=== PATIENT | male | born 1980 | race Caucasian/White ===

== ENCOUNTER 2022-06-09 01:30 | Inpatient (IN) | payer MEDICAID ==
[~2022-06-09] VITALS: Ht 172.7 cm; Wt 60.3 kg
[2022-06-09 01:30] VITALS: BP 91/62
--- NOTE | 2022-06-09 01:36 | NUR ---
PT [facility] ER BED 07
--- NOTE | 2022-06-09 01:41 | NUR ---
Patient being evaluated by physician at bedside.
[2022-06-09] MEDS ORDERED: NACL 0.9% 1,000 ML IV ONE (01:50)
--- NOTE | 2022-06-09 02:00 | NUR ---
42YR OLD MALE BIB EMS C/O ABD PAIN /VOMITING. PT HAS A COLOSTOMY LAST BOWEL MOVEMENT YESTERDAY. PT DENIES CP OR SOB. STOMA PINK AND MOIST. SWELLING AROUND STOMA, CHRONIC . PT IS A&OX4 SKIN WARM AND DRY. 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 NKDA
[2022-06-09 02:12] LABS: ANION GAP 12.7 (8-16); CARBON DIOXIDE 29.1 mmol/L (21-32); CREATININE 0.6 mg/dL (0.6-1.3); POTASSIUM 3.8 mmol/L (3.5-5.1); TOTAL BILIRUBIN 0.2 mg/dL (0.0-1.0)
[2022-06-09 02:44] LABS: BASOPHILS # (AUTO) 0.1 K/uL (0.00-0.22); BASOPHILS % (AUTO) 0.7 % (0.0-2.0); EOSINOPHILS # (AUTO) 0.2 K/uL (0-0.4); EOSINOPHILS % (AUTO) 2.3 % (0.0-4.0); HEMATOCRIT 38.4 % (36-52); HEMOGLOBIN 12.7 g/dL (12.0-18.0); LYMPHOCYTES # (AUTO) 1.9 K/uL (2.0-11.5); LYMPHOCYTES % (AUTO) 19.6 % (20.5-51.1); MEAN CORPUSCULAR HEMOGLOBIN 30 pg (27-31); MEAN CORPUSCULAR HGB CONC 33 g/dL (33-37); MONOCYTES # (AUTO) 0.9 K/uL (0.8-1.0); NEUTROPHILS # (AUTO) 6.5 K/uL (1.8-7.7); NEUTROPHILS % (AUTO) 68.4 % (42.2-75.2); PLATELET COUNT (AUTO) 176 K/uL (140-450); RED BLOOD CELL COUNT(AUTO) 4.17 MIL/uL (4.20-6.10); RED CELL DISTRIBUTION WIDTH 17.1 % (11.6-13.7); WHITE BLOOD COUNT (AUTO) 9.5 K/uL (4.8-10.8)
[2022-06-09] MEDS ORDERED: MAGN400S60 PO (03:06)
--- NOTE | 2022-06-09 05:01 | NUR ---
PT IS D/C WAITING FOR FAMILY. PT IS VISITNG FROM [place]. SPOKE WITH ON PHONE AND QUESTIONS ANSWERED. PT IS WILLING TO DO CT OF ABD THIS AM.
[2022-06-09] MEDS ORDERED: KETOROLAC 30 MG/ML VIAL IVP ONE (05:55)
[2022-06-09] MEDS ORDERED: ONDANSETRON 4 MG/2 ML VIAL IVP ONE (06:20)
[2022-06-09] MEDS: NACL 0.9% 1,000 ML IV ONE ×2 (06:22→06:35)
--- NOTE | 2022-06-09 06:38 | NUR ---
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 WAITING FOR CT ABD . 11/21 PAIN. MEDS AND FLUIDS GIVEN
[2022-06-09 07:03] LABS: APPEARANCE,URINE CLEAR (CLEAR); BILIRUBIN,URINE 1+ (NEGATIVE); BLOOD, URINE 1+ (NEGATIVE); COLOR,URINE YELLOW (YELLOW); LEUKOCYTE ESTERASE ,URINE 1+ (NEGATIVE); NITRITE, URINE POSITIVE (NEGATIVE); UGLUCOSE NEGATIVE (NEGATIVE)
--- NOTE | 2022-06-09 07:20 | NUR ---
Report recieved from LAURYN Kenny for transfer of care.
--- NOTE | 2022-06-09 08:16 | NUR ---
Updated Beverly, , of patients condition and pending admission. Call back number [phone].
[2022-06-09] MEDS ORDERED: POTASSIUM CHLORIDE 10 MEQ TABER PO PRN (08:20)
[2022-06-09] MEDS ORDERED: DOCUSATE SODIUM 100 MG GELCAP PO PRN (08:20)
[2022-06-09] MEDS ORDERED: ZOLPIDEM 10 MG TAB PO PRN (08:20)
[2022-06-09] MEDS ORDERED: MAG SULF 2000 MG/WATER PREMIX 50 ML IV PRN (08:20)
[2022-06-09] MEDS ORDERED: LORazepam 2 MG/ML VIAL IVP PRN (08:20)
[2022-06-09] MEDS ORDERED: ONDANSETRON 4 MG/2 ML VIAL IVP PRN (08:20)
[2022-06-09] MEDS ORDERED: MORPHINE SULFATE 2 MG/ML SYR IVP PRN (08:20)
[2022-06-09] MEDS ORDERED: ACETAMINOPHEN 325 MG TAB PO PRN (08:20)
[2022-06-09] MEDS ORDERED: HYDR-5192 PO (08:21)
[2022-06-09] MEDS ORDERED: ZOLP5TAB1 PO (08:21)
[2022-06-09] MEDS ORDERED: GABA100C PO (08:21)
[2022-06-09] MEDS ORDERED: QUET50TA PO (08:21)
[2022-06-09] MEDS ORDERED: HYDR2TAB6 PO (08:21)
--- NOTE | 2022-06-09 08:21 | NUR ---
med rec complete
--- NOTE | 2022-06-09 08:42 | NUR ---
Dr. Gerardo, admitting doctor, evaluating patient at bedside.
--- NOTE | 2022-06-09 08:50 | NUR ---
Patient refusing to change into gown.
[2022-06-09] MEDS: NACL 0.9% 1,000 ML IV SCH ×2 (09:39→18:15)
--- NOTE | 2022-06-09 09:50 | NUR ---
Patient will be admitted to care of Dr. Gerardo. Admited to Telemetry. Will go to room 106-B. Belongings list completed. Report to LAURYN Carlton.
--- NOTE | 2022-06-09 10:18 | NUR ---
The patient's care was reviewed and supervised by RAMONITA OWEN RN.
--- NOTE | 2022-06-09 10:34 | NUR ---
PATIENT HAS BEEN SCREENED AND CATEGORIZED HIGH NUTRITION RISK. PATIENT WILL BE SEEN WITHIN 1-2 DAYS OF ADMISSION. REVIEWED BY IGLESIA RIVERA RD
--- NOTE | 2022-06-09 11:00 | NUR ---
pATIENT TRANSPORTED IN FROM er IN NO ACUTE DISTRESS. bp VSS. pATIENT REFUSED TO ANSWER QUESTIONS DURING ADMISSION, COVERED FACE WITH BED SHEETS. CALLED AND UPDATED WITH PATIENT'S STATUS. 1200 pATIENT COMPLAINED OF SEVERE ABDOMINAL PAIN, mEDICATED WITH ORPHINE SULFATE 2MG 1VP WILL REASSESS
[2022-06-09 12:00] VITALS: BP 114/82
--- NOTE | 2022-06-09 14:00 | NUR ---
1345 npo ORDERED BY dR. jackson FOR PENDING SURGERY SOON POSSIBLE TODAY.
--- NOTE | 2022-06-09 14:40 | NUR ---
PATIENT TO or AT THIS TIME, IN NO ACUTE DISTRESS.
[2022-06-09] MEDS ORDERED: LIDOCAINE 1% 500 MG/50 ML VIAL ONE (14:58)
[2022-06-09] MEDS ORDERED: BUPIVACAINE-MPF/EPI 0.25% 30 ML VIAL INJ ONE (14:58)
[2022-06-09] MEDS ORDERED: KETOROLAC 30 MG/ML VIAL ONE ×2 (15:15→18:56)
[2022-06-09] MEDS ORDERED: DESFLURANE 240 ML BTL INH ONE (15:15)
[2022-06-09] MEDS ORDERED: HYDROmorphone PFS 2 MG/ML SYR ONE ×4 (15:15→20:35)
[2022-06-09] MEDS ORDERED: ONDANSETRON 4 MG/2 ML VIAL ONE ×2 (15:15→18:56)
[2022-06-09] MEDS ORDERED: SUGAMMADEX SODIUM 200 MG/2 ML VIAL IV ONE ×2 (15:15→20:06)
[2022-06-09] MEDS ORDERED: fentaNYL citrate 0.05 MG/ML VIAL ONE (15:26)
[2022-06-09] MEDS ORDERED: DEXAMETHASONE 4 MG/ML VIAL ONE (15:40)
[2022-06-09] MEDS ORDERED: ROCURONIUM 50 MG/5 ML VIAL IV ONE ×3 (15:40)
[2022-06-09] MEDS ORDERED: PROPOFOL 200 MG/20 ML VIAL IV ONE (15:40)
--- NOTE | 2022-06-09 16:32 | NUR ---
06/09/22 RD INITIAL ASSESSMENT COMPLETED PLEASE REFER TO NUTRITION ASSESSMENT UNDER CARE ACTIVITY FOR ESTIMATED NUTRITIONAL NEEDS. 1. MONITOR NPO STATUS 2. WHEN/IF MEDICALLY APPROPRIATE, START WITH CLEAR LIQUID DIET AND ENSURE CLEAR 1/DAY -ENSURE CLEAR PROVIDES 240 KCALS AND 8 GM PROTEIN DAILY 3. GRADUALLY ADVANCE TO LOW FAT DIET TOLERATED 3. RD TO FOLLOW-UP 2-3 DAYS, HIGH RISK REVIEWED BY IGLESIA RIVERA RD
--- NOTE | 2022-06-09 16:48 | NUR ---
patient was admitted to tele around 11am. Received report for patient FoziamitaChintan from Tele nurse, patient is in OR for small bowel obstruction. Tele nurse hasnt had patient for several hours. Spoke with Beverly at 1630 to receive more information of patient. patient still in OR at this time.
--- NOTE | 2022-06-09 19:12 | NUR ---
SENT MESSAGE TO DR. URBANO REGARDING PT. LOW BP AND HE ORDERED TO NOTIFY SURGEON ABOUT THE BLOOD PRESSURE. HE ALSO ORDERED TO ADD LEVOPHED. ALSO LAB WAS ORDERED. Addendum: 06/09/22 at 2316 by Silvana Lilly RN CORRECTION: TIME [id number]
--- NOTE | 2022-06-09 19:30 | NUR ---
DR. THOMPSON MADE ROUNDS AND ASSESSED POST OR PROCEDURE. HE ALSO TALKED TO THE AND DAUGHTER REGARDING THE POST PROCEDURE. Addendum: 06/09/22 at 2318 by Silvana Lilly RN CORRECTION: TIME [id number]
--- NOTE | 2022-06-09 19:30 | NUR ---
DR. THOMPSON NOTIFIED WITH LOW BP SYSTOLIC IN THE 30'S AND HE ORDERED TO BOLUS 500 ML NS. Addendum: 06/09/22 at 2318 by Silvana Lilly RN CORRECTION: TIME [id number]
--- NOTE | 2022-06-09 20:30 | NUR ---
RECEIVED PT. FROM OR, ACCOMPANIED BY ANESTHESIOLOGIST AND RN. REPORT GIVEN BY LAURYN JAIN. PT. WIDE AWAKE, ALERT AND ABLE TO EXPRESS NEEDS AND WANTS. PT. UNDERGONE PROCEDURE: EXPLORE LAP WITH RELEASE OF ADHESION AND NEW COLOSTOMY CREATION. PT. WITH STAPLE TO MIDLINE AND LEFT LOWER QUADRANT WITH 2 JENELLE DRAIN TO THE RIGHT SIDE. PER OR REPORT, PROCEDURE STARTED AT 15:40 AND ENDED 2028. PT.ON A FACEMASK 6L AND O2 SAT 96%. IV TO LEFT WRIST 22G CAPPED AND FLUSHED.IV TO RIGHT HAND 18G RUNNING LR 1L STARTED FROM OR. PT. ABLE TO MOVE HIS BODY FROM SIDE TO SIDE. PT. COMPLAINING OF PAIN UPON TRANSFER AND ANESTHESIOLOGIST GAVE HIM DILAUDID IVP. PER ANESTHESIOLOGIST DILAUDID WAS GIVEN A TOTAL OF 6 MG.PER REPORT FROM OR, BEE CATHETER CAME WITH THE PT. AND DAUGHTER CAME AND PROVIDED UPDATE WITH PT. CURRENT CONDITION.
[2022-06-09 20:33] VITALS: BP 143/92
[2022-06-09] MEDS ORDERED: NOREPINEPHRINE 16 MG in DEXTROSE 5% 250 ML IV PRN (21:15)
[2022-06-09 21:27] VITALS: BP 38/22
--- NOTE | 2022-06-09 21:45 | NUR ---
LAB CAME AND DRAWN BLOOD.
[2022-06-09 21:46] VITALS: BP 128/89
--- NOTE | 2022-06-09 21:46 | NUR ---
POST BOLUS OF NS 500ML, BP 128/89, HR 77, R 16 AND O2 SAT 97% IN ROOM AIR. WILL CONTINUE TO MONITOR.
[2022-06-09] MEDS: MORPHINE SULFATE 4 MG/ML SYR IV PRN (21:59)
[2022-06-09 22:00] VITALS: BP 113/76
--- NOTE | 2022-06-09 22:06 | NUR ---
PT. RENÉ STATED THAT SHE DOESN'T WANT ANYONE TO CALL HER AND TO GET INFORMATION THAT HER IS IN THE HOSPITAL WITHOUT HER KNOWLEDGE. SHE GAVE A PASSWORD [phone], IF RELATIVE OR FRIENDS DOESN'T KNOW THE PASSWORD NOT TO GIVE INFORMATION THAT PT. IS IN THE HOSPITAL.
[2022-06-09 22:19] LABS: BASOPHILS % (AUTO) 0.2 % (0.0-2.0); EOSINOPHILS % (AUTO) 0.1 % (0.0-4.0); HEMATOCRIT 43.3 % (36-52); HEMOGLOBIN 14.1 g/dL (12.0-18.0); LYMPHOCYTES # (AUTO) 0.8 K/uL (2.0-11.5); LYMPHOCYTES % (AUTO) 6.5 % (20.5-51.1); MEAN CORPUSCULAR HEMOGLOBIN 30 pg (27-31); MEAN CORPUSCULAR HGB CONC 33 g/dL (33-37); MONOCYTES # (AUTO) 0.7 K/uL (0.8-1.0); MONOCYTES % (AUTO) 5.8 % (1.7-9.3); NEUTROPHILS # (AUTO) 10.7 K/uL (1.8-7.7); NEUTROPHILS % (AUTO) 87.4 % (42.2-75.2); PLATELET COUNT (AUTO) 156 K/uL (140-450); RED BLOOD CELL COUNT(AUTO) 4.65 MIL/uL (4.20-6.10); WHITE BLOOD COUNT (AUTO) 12.3 K/uL (4.8-10.8)
[2022-06-09 22:36] LABS: ALBUMIN 2.6 g/dL (3.4-5.0); ANION GAP 10.7 (8-16); CARBON DIOXIDE 26.2 mmol/L (21-32); CREATININE 0.6 mg/dL (0.6-1.3); POTASSIUM 3.9 mmol/L (3.5-5.1); TOTAL BILIRUBIN 0.4 mg/dL (0.0-1.0)
--- NOTE | 2022-06-09 23:35 | NUR ---
RESULT OF CBC AND BMP SENT TO DR. URBANO.
[2022-06-10] VITALS (12 sets, daily range): BP systolic 94–134; BP diastolic 53–98
[2022-06-10] MEDS ORDERED: PIPERACILLIN/TAZOBACTAM 3.375 GM VIAL IV ONE ×2 (00:13→05:47)
[2022-06-10] MEDS: PIPERACILLIN/TAZOBACTAM 3.375 GM in DEXTROSE 5% 50 ML IV SCH ×5 (00:20→23:04)
[2022-06-10] MEDS: HYDROmorphone 1 MG/ML AMP IVP PRN ×5 (01:04→22:02)
[2022-06-10] MEDS: NACL 0.9% 1,000 ML IV SCH ×2 (04:15→18:22)
[2022-06-10] MEDS: MORPHINE SULFATE 4 MG/ML SYR IV PRN ×3 (04:32→21:42)
[2022-06-10 05:40] LABS: HEMATOCRIT 37.1 % (36-52); HEMOGLOBIN 12.4 g/dL (12.0-18.0); MEAN CORPUSCULAR HEMOGLOBIN 30 pg (27-31); MEAN CORPUSCULAR HGB CONC 33 g/dL (33-37); PLATELET COUNT (AUTO) 148 K/uL (140-450); RED BLOOD CELL COUNT(AUTO) 4.08 MIL/uL (4.20-6.10); RED CELL DISTRIBUTION WIDTH 17.3 % (11.6-13.7)
[2022-06-10 06:20] LABS: CARBON DIOXIDE 27.1 mmol/L (21-32); CREATININE 0.6 mg/dL (0.6-1.3); POTASSIUM 4.1 mmol/L (3.5-5.1)
--- NOTE | 2022-06-10 08:03 | NUR ---
Received patient from LAURYN oswald. patient awake and alert, at times appears drowsy. Patient paraplegic but able to feel sensation in lower extremities, ostomy is pink and supple, JENELLE drains are draining, full bulb suction, has decubitus ulcer left buttock, wound consult pending. Will continue to monitor and provide pain management.
[2022-06-10 08:16] LABS: LYMPHOCYTES % (MANUAL) 9 % (20-46); MONOCYTES % (MANUAL) 5 % (5-12)
[2022-06-10] MEDS: ENOXAPARIN 30 MG/0.3 ML SYR SUBQ SCH (08:41)
[2022-06-10] MEDS ORDERED: VANCOMYCIN PER PHARMACY MC PRN (09:55)
[2022-06-10] MEDS: VANCOMYCIN 1,000 MG in DEXTROSE 5% 250 ML IV SCH ×2 (12:18→21:39)
[2022-06-10] MEDS ORDERED: HYDROmorphone 1 MG/ML AMP IVP SCH (15:30)
--- NOTE | 2022-06-10 19:30 | NUR ---
RECEIVED REPORT FROM DAY SHIFT RN .PATIENT IS S/P EXPLOR LAP.AWAKE ALERT AND ORIENTED ,AFEBRILE.ON ROOM AIR .CLOLOSTOMY PATENT.PARAPLEGIC WITH SENSATION ON LOWER EXTREMITIES.JENELLE BULB PATENT AND INTACT.'NS AT 100ML INFUSING WELL .WILL CONTINUE WITH CARE MANAGEMENT.
--- NOTE | 2022-06-10 21:38 | NUR ---
+DR JAY NGO PPN.
--- NOTE | 2022-06-10 21:42 | NUR ---
RENÉ SIGNED CONSENT FOR PICC LINE.
--- NOTE | 2022-06-10 22:14 | NUR ---
DR YOLIE EUGENE FOR PICC.
--- NOTE | 2022-06-10 22:20 | NUR ---
CALLED LUIS ANTONIO PICC LINE WAITING FOR HIS CALL.
[2022-06-11] VITALS (13 sets, daily range): BP systolic 90–135; BP diastolic 60–83
[2022-06-11] MEDS: HYDROmorphone 1 MG/ML AMP IVP PRN ×6 (03:04→20:32)
[2022-06-11] MEDS: MORPHINE SULFATE 2 MG/ML SYR IVP PRN ×2 (04:56→05:36)
[2022-06-11] MEDS: NACL 0.9% 1,000 ML IV SCH ×3 (06:20→21:10)
[2022-06-11] MEDS: PIPERACILLIN/TAZOBACTAM 3.375 GM in DEXTROSE 5% 50 ML IV SCH ×3 (06:23→18:18)
[2022-06-11] MEDS ORDERED: HYDROmorphone 1 MG/ML AMP IVP PRN (06:30)
--- NOTE | 2022-06-11 07:00 | NUR ---
REPORT GIVEN TO LARON FOR FOLLOW UP OF CARE.
[2022-06-11 07:13] LABS: BASOPHILS # (AUTO) 0.1 K/uL (0.00-0.22); BASOPHILS % (AUTO) 0.6 % (0.0-2.0); EOSINOPHILS # (AUTO) 0.2 K/uL (0-0.4); EOSINOPHILS % (AUTO) 1.2 % (0.0-4.0); HEMATOCRIT 28.9 % (36-52); HEMOGLOBIN 9.6 g/dL (12.0-18.0); LYMPHOCYTES # (AUTO) 1.7 K/uL (2.0-11.5); LYMPHOCYTES % (AUTO) 12.3 % (20.5-51.1); MEAN CORPUSCULAR HEMOGLOBIN 30 pg (27-31); MEAN CORPUSCULAR HGB CONC 33 g/dL (33-37); MEAN CORPUSCULAR VOLUME 91.7 fL (80-94); MONOCYTES # (AUTO) 1.8 K/uL (0.8-1.0); MONOCYTES % (AUTO) 12.9 % (1.7-9.3); NEUTROPHILS # (AUTO) 10.3 K/uL (1.8-7.7); PLATELET COUNT (AUTO) 153 K/uL (140-450); RED BLOOD CELL COUNT(AUTO) 3.16 MIL/uL (4.20-6.10); RED CELL DISTRIBUTION WIDTH 17.4 % (11.6-13.7); WHITE BLOOD COUNT (AUTO) 14.1 K/uL (4.8-10.8)
[2022-06-11 07:28] LABS: ANION GAP 7.9 (8-16); CARBON DIOXIDE 28.8 mmol/L (21-32); CREATININE 0.5 mg/dL (0.6-1.3); POTASSIUM 3.7 mmol/L (3.5-5.1)
[2022-06-11] MEDS: ENOXAPARIN 30 MG/0.3 ML SYR SUBQ SCH (09:34)
[2022-06-11] MEDS: VANCOMYCIN 1,000 MG in DEXTROSE 5% 250 ML IV SCH (11:26)
--- NOTE | 2022-06-11 12:44 | NUR ---
06/11/22 RD FOLLOW UP COMPLETED.PLEASE REFER TO NUTRITION ASSESSMENT UNDER CARE ACTIVITY FOR ESTIMATED NUTRITIONAL NEEDS. 1. RECOMMEND TPN PER SURGERY 2. WHEN/IF MEDICALLY APPROPRIATE TO HAVE PO INTAKE, RECOMMEND STARTING WITH CLEAR LIQUID DIET AND GRADUALLY ADVANCING TO LOW FAT DIET WITH HEIDI BID (160 KCAL, 5 GRAMS PROTEIN) TO PROMOTE WOUND HEALING 2. CONSULT RD PRN 3.RD TO FOLLOW UP 2-3 DAYS PATIENT IS HIGH RISK DINORA CH RD
[2022-06-11] MEDS ORDERED: PPN PER PHARMACY MC PRN (14:30)
[2022-06-11] MEDS ORDERED: MAG SULF 2000 MG/WATER PREMIX 50 ML IV SCH (17:30)
--- NOTE | 2022-06-11 23:47 | NUR ---
[id number]- VANCO LEVEL WAS8.9 AND WAS RELAYEDTO NIGHT PHARMACIST AND [facility] OF [facility] DUE [id number] GIVEN
--- NOTE | 2022-06-11 23:51 | NUR ---
1930- WOODROW GAVE ENDORSEMENT REPORT
--- NOTE | 2022-06-11 23:52 | NUR ---
2030- DILAUDID 1MG iVP GIVEN FOR C/O OF GENERALIZED DISCOMFORT
--- NOTE | 2022-06-11 23:53 | NUR ---
AT 2354- IMG OF DILAUDID WAS GIVEN FOR GENERALIZED DISCOMFORT
[2022-06-12] MEDS: VANCOMYCIN 1,000 MG in DEXTROSE 5% 250 ML IV SCH ×2
[2022-06-12] MEDS: HYDROmorphone 1 MG/ML AMP IVP PRN ×6 (00:04→08:54)
[2022-06-12 01:05] VITALS: BP 94/57
--- NOTE | 2022-06-12 01:08 | NUR ---
0100-asleep on rounds
--- NOTE | 2022-06-12 02:43 | NUR ---
0218 - DILAUDID 1MG IVP GIVEN FOR SEVERE PAIN
[2022-06-12 04:00] VITALS: BP 94/57
[2022-06-12 05:19] LABS: BASOPHILS # (AUTO) 0.1 K/uL (0.00-0.22); BASOPHILS % (AUTO) 0.5 % (0.0-2.0); EOSINOPHILS # (AUTO) 0.3 K/uL (0-0.4); EOSINOPHILS % (AUTO) 2.6 % (0.0-4.0); HEMATOCRIT 26.9 % (36-52); HEMOGLOBIN 8.9 g/dL (12.0-18.0); LYMPHOCYTES # (AUTO) 2.2 K/uL (2.0-11.5); LYMPHOCYTES % (AUTO) 17.8 % (20.5-51.1); MEAN CORPUSCULAR HEMOGLOBIN 31 pg (27-31); MEAN CORPUSCULAR HGB CONC 33 g/dL (33-37); MEAN CORPUSCULAR VOLUME 92.3 fL (80-94); MONOCYTES # (AUTO) 1.2 K/uL (0.8-1.0); MONOCYTES % (AUTO) 9.9 % (1.7-9.3); NEUTROPHILS # (AUTO) 8.7 K/uL (1.8-7.7); NEUTROPHILS % (AUTO) 69.2 % (42.2-75.2); PLATELET COUNT (AUTO) 173 K/uL (140-450); RED BLOOD CELL COUNT(AUTO) 2.91 MIL/uL (4.20-6.10); RED CELL DISTRIBUTION WIDTH 16.9 % (11.6-13.7); WHITE BLOOD COUNT (AUTO) 12.5 K/uL (4.8-10.8)
[2022-06-12] MEDS: PIPERACILLIN/TAZOBACTAM 3.375 GM in DEXTROSE 5% 50 ML IV SCH ×3 (05:46)
[2022-06-12 06:00] VITALS: BP 107/65
[2022-06-12 06:03] LABS: ALBUMIN 1.8 g/dL (3.4-5.0); ANION GAP 6.2 (8-16); CARBON DIOXIDE 29.3 mmol/L (21-32); CHOL/HDL RATIO 1.7 (1-4.5); CREATININE 0.5 mg/dL (0.6-1.3); POTASSIUM 3.5 mmol/L (3.5-5.1); TOTAL BILIRUBIN 0.3 mg/dL (0.0-1.0)
--- NOTE | 2022-06-12 06:46 | NUR ---
0447- DILAUDID 1 MG IVP GIVEN FOR PAIN IN GENERAL
--- NOTE | 2022-06-12 06:55 | NUR ---
0650- DILAUDID 1 MG IVP GIVEN FOR SEVERE PAIN
--- NOTE | 2022-06-12 06:56 | NUR ---
0630- REFUSED BATH BUT CHANGED CHUCKS
--- NOTE | 2022-06-12 07:20 | NUR ---
RECEIVED REPORT FROM PRODUCTION ADMINISTRATOR NURSE GINA RN. ALL CARES ASSUMED. PT SEEN AWAKE, RESPONSIVE AND ORIENTED X3. PT ON SEMI-DOBSON'S POSITION. WITH PICC LINE OVER RIGHT UPPER ARM TO NORMAL SALINBE AT 100 CC/HR -PATENT AND INTACT. WITH COLOSTOMY IN PLACE, STOMA IN NORMAL CONDITION-NO OUTPUT NOTED. WITH [address] OVER RIGHT LOWER QUADRANT - IN NEGATIVE PRESSURE WITH NO DRAINAGE NOTED. WITH BEE CATHETER ATTACHED TO UROBAG- DRAINING WELL TO YELLOW-COLORED URINE. WITH SAFETY PRECAUTIONS IN PLACE. CALL LIGHT WITHIN REACH. CURTAINS CLOSED REQUESTED BY PT. KEPT MONITORED.
[2022-06-12 08:00] VITALS: BP 124/73
[2022-06-12] MEDS: ENOXAPARIN 30 MG/0.3 ML SYR SUBQ SCH (08:24)
--- NOTE | 2022-06-12 08:54 | NUR ---
PT REPORTED PAIN - 10/10 CLAIMED. COMFORT MEASURES PROVIDED. DILAUDID GIVEN. KEPT MONITORED
[2022-06-12] MEDS: NACL 0.9% 1,000 ML IV SCH (09:06)
--- NOTE | 2022-06-12 09:30 | NUR ---
VISITED BY PT'S AND TRYING TO FIX PTS BED. ASKED IF THEY NEED ANY ASSISTANCE BUT REFUSED HELP.
--- NOTE | 2022-06-12 09:42 | NUR ---
PT WHEELED OUT SUDDENLY BY PER WHEELCHAIR AND REFUSED TO SIGN AMA. RISKED AND CONSEQUENCES EXPLAINED TO PT AND BUT STILL INSISTED. UPON GOING OUT OF ICU, PICC LINE STILL IN PLACE WITHOUT DRIP. PT STILL ON BEE CATHETER.
--- NOTE | 2022-06-12 11:29 | NUR ---
DC PLANNING ATTEMPTED TO MEET PT AT BEDSIDE TO COMPLETE ASSESSMENT, HOWEVER, NURSE REPORTS PT JANUSZA'Andrew.
[2022-06-12] MEDS ORDERED: BLOOD GLUCOSE MONITORING 1 DEV DEV MC SCH (20:00)
[2022-06-12] MEDS ORDERED: INSULIN LISPRO SLIDING SCALE 100 UNITS/ML VIAL SUBQ PRN (20:00)
[2022-06-12] MEDS ORDERED: [UNRECOGNIZED DRUG - OTHER] IV SCH ×4 (20:00)
[2022-06-12] MEDS ORDERED: MULTIVITAMIN IV SCH ×4 (20:00)
[2022-06-12] MEDS ORDERED: DEXTROSE IV SCH ×4 (20:00)
[2022-06-12] MEDS ORDERED: AMINO ACIDS IV SCH ×4 (20:00)
[2022-06-13 06:08] LABS: HEPATITIS C AB Non Reactive (Non Reactive)
[2022-06-13 06:08] LABS: HEPATITIS B CORE AB TOTAL Negative (Negative); HEPATITIS B SURFACE ANTIBODY Non Reactive (.); HEPATITIS B SURFACE ANTIGEN Negative (Negative); HEPATITIS C VIRUS ANTIBODY Non Reactive (Non Reactive)
== END 2022-06-12 09:42 | disposition left against medical advice (07) | DRG 230 ==
LOC: MED 01:30 → MTU 08:17 → MIC 16:16
PROVIDERS: ADMIT Family Medicine; ATTEND Family Medicine
PROC: 0D1L0Z4 Bypass Transverse Colon to Cutaneous, Open Approach (ICD-10-PCS; 2022-06-09)
PROC: 0WQF0ZZ Repair Abdominal Wall, Open Approach (ICD-10-PCS; 2022-06-09)
PROC: 0DNU0ZZ Release Omentum, Open Approach (ICD-10-PCS; 2022-06-09)
PROC: 0DQ80ZZ Repair Small Intestine, Open Approach (ICD-10-PCS; principal; 2022-06-09 14:00)
PROC: 02HV33Z Insertion of Infusion Device into Superior Vena Cava, Percutaneous Approach (ICD-10-PCS; 2022-06-11)
PROC: B548ZZA Ultrasonography of Superior Vena Cava, Guidance (ICD-10-PCS; 2022-06-11)
DX: K56.609 Unspecified intestinal obstruction, unspecified as to partial versus complete obstruction (principal); G82.20 Paraplegia, unspecified; L89.329 Pressure ulcer of left buttock, unspecified stage; K43.5 Parastomal hernia without obstruction or gangrene; M43.24 Fusion of spine, thoracic region; N39.0 Urinary tract infection, site not specified; R33.9 Retention of urine, unspecified; K86.1 Other chronic pancreatitis; K59.00 Constipation, unspecified; F11.90 Opioid use, unspecified, uncomplicated; Z20.822 Contact with and (suspected) exposure to COVID-19; L97.529 Non-pressure chronic ulcer of other part of left foot with unspecified severity; K66.0 Peritoneal adhesions (postprocedural) (postinfection); M86.9 Osteomyelitis, unspecified; S91.302A Unspecified open wound, left foot, initial encounter; X58.XXXA Exposure to other specified factors, initial encounter; B96.89 Other specified bacterial agents as the cause of diseases classified elsewhere; Z79.899 Other long term (current) drug therapy; Z99.3 Dependence on wheelchair; Y93.89 Activity, other specified; Y92.89 Other specified places as the place of occurrence of the external cause; Y99.8 Other external cause status
CPT/HCPCS: 36415; 71045; 73630; 74018; 80048; 80053; 80202; 81001; 83605; 83690; 83735; 84100; 85025; 86702; 86704; 86706; 86803; 86804; 87081; 87086; 87340; 87522; 93005; 96361; 96374; 96375; 99285; A9153; J1100; J1170; J1650; J1815; J1885; J2001; J2270; J2405; J2543; J2704; J3010; J3370; J3475; J3490; J7060; J7120; Q0092